=== PATIENT | female | born 1980 | race Hispanic/Latino ===

== ENCOUNTER 2022-01-06 17:23 | Inpatient (IN) | payer OTHER ==
[~2022-01-06] VITALS: Ht 157.5 cm; Wt 57.2 kg
[2022-01-06] MEDS ORDERED: LACTATED RINGERS 1000ML 1,000 ML IV ONE (18:00)
[2022-01-06] MEDS ORDERED: MORPHINE 4 MG SYG IVP ONE (18:00)
[2022-01-06] MEDS ORDERED: ONDANSETRON 4MG INJ IVP ONE (18:00)
[2022-01-06 19:10] LABS: BASOPHILS % (AUTO) 0.4 % (0.0-5.0); EOSINOPHILS % (AUTO) 1.1 % (0.0-8.0); HEMATOCRIT 38.1 % (36-48); LYMPHOCYTES % (AUTO) 12.4 % (21.0-51.0); MEAN CORPUSCULAR HEMOGLOBIN 29.7 pg (27.0-33.0); MEAN CORPUSCULAR HGB CONC 33.9 g/dL (32.0-36.0); MEAN CORPUSCULAR VOLUME 87.6 fL (79-99); MONOCYTES % (AUTO) 5.4 % (3.0-13.0); NEUTROPHILS % (AUTO) 80.4 % (40.0-77.0); PLATELET COUNT (AUTO) 209 K/uL (130-400); RED BLOOD CELL COUNT(AUTO) 4.35 MIL/uL (4.00-5.50); RED CELL DISTRIBUTION WIDTH 13.4 % (11.0-15.5); WHITE BLOOD COUNT (AUTO) 11.7 K/uL (4.8-10.8)
[2022-01-06 19:13] LABS: CREATININE 0.6 mg/dL (0.5-1.5); POTASSIUM 3.6 mmol/L (3.5-5.1)
[2022-01-06 19:23] LABS: ALBUMIN 3.4 g/dL (3.5-5.0); BILIRUBIN,TOTAL 0.3 mg/dL (0.2-1.0); TOTAL PROTEIN, SERUM 7.1 g/dL (6.0-8.3)
[2022-01-06] MEDS ORDERED: KETOROLAC 30MG VIAL (30MG/ML) IVP ONE (19:30)
[2022-01-06] MEDS ORDERED: IOHEXOL 350 MG/ML 100ML INFUS..BTL IV ONE (21:55)
[2022-01-06] MEDS ORDERED: DOXYCYCLINE HYCLATE 100 MG TABLET PO SCH (22:00)
[2022-01-06] MEDS ORDERED: CEFTRIAXONE 1G VIAL IVP ONE (22:00)
[2022-01-06] MEDS ORDERED: ACETAMINOPHEN 500 MG TABLET PO ONE (22:00)
[2022-01-06 22:01] LABS: APPEARANCE,URINE Clear (CLEAR); BILIRUBIN,URINE Negative (NEGATIVE); COLOR,URINE Yellow (YELLOW); GLUCOSE, URINE (UA) Negative (NEGATIVE); KETONES,URINE Negative (NEGATIVE); LEUKOCYTE ESTERASE ,URINE Large (NEGATIVE); NITRATE,URINE Negative (NEGATIVE); OCCULT BLOOD,URINE Small (NEGATIVE); PH,URINE 7.5 (5.0-8.0); PROTEIN,URINE Negative (NEGATIVE)
[2022-01-06 22:09] LABS: BACTERIA,URINE Few /HPF (None Seen); SQUAMOUS EPITHELIAL CELL,UR Few /HPF (0-2)
[2022-01-06] MEDS ORDERED: 0.9%NACL 1000ML 1,000 ML IV ONE ×2 (22:58→23:30)
[2022-01-06] MEDS ORDERED: LACTATED RINGERS 1000ML IV STA (23:04)
[2022-01-07] VITALS (7 sets, daily range): BP systolic 114–157; BP diastolic 75–95
[2022-01-07 00:17] LABS: PROTHROMBIN TIME 10.9 SEC (9.6-11.6)
[2022-01-07 00:18] LABS: PARTIAL THROMBOPLASTIN TIME 29.7 SEC (26.3-35.5)
[2022-01-07] MEDS: ONDANSETRON 4MG INJ IV PRN ×2 (00:55→17:15)
[2022-01-07] MEDS: MORPHINE 4 MG SYG IV PRN ×2 (01:05→06:13)
[2022-01-07] MEDS: LACTATED RINGERS 1000ML 1,000 ML IV SCH ×2 (01:10→08:47)
[2022-01-07 03:02] LABS: BASOPHILS % (AUTO) 0.2 % (0.0-5.0); EOSINOPHILS % (AUTO) 0.4 % (0.0-8.0); HEMATOCRIT 36.9 % (36-48); LYMPHOCYTES % (AUTO) 9.8 % (21.0-51.0); MEAN CORPUSCULAR HGB CONC 34.1 g/dL (32.0-36.0); MEAN CORPUSCULAR VOLUME 84.8 fL (79-99); MONOCYTES % (AUTO) 4.8 % (3.0-13.0); NEUTROPHILS % (AUTO) 84.6 % (40.0-77.0); PLATELET COUNT (AUTO) 197 K/uL (130-400); RED BLOOD CELL COUNT(AUTO) 4.35 MIL/uL (4.00-5.50); RED CELL DISTRIBUTION WIDTH 13.2 % (11.0-15.5); WHITE BLOOD COUNT (AUTO) 9.8 K/uL (4.8-10.8)
[2022-01-07 03:11] LABS: CREATININE 0.6 mg/dL (0.5-1.5); POTASSIUM 4.1 mmol/L (3.5-5.1)
[2022-01-07] MEDS ORDERED: ZOSYN 3.375GM +NS 50ML IV SCH (06:00)
[2022-01-07] MEDS: DOCUSATE SODIUM 100 MG CAP PO SCH ×2 (08:46→21:27)
[2022-01-07] MEDS: ACETAMINOPHEN 325 MG TAB PO PRN ×3 (08:46→23:54)
[2022-01-07] MEDS: KETOROLAC 15MG/ML VIAL (15MG/ML) IV PRN ×3 (08:47→23:57)
[2022-01-07] MEDS: DOXYCYCLINE HYCLATE 100 MG TABLET PO SCH ×2 (11:31→21:45)
[2022-01-07] MEDS ORDERED: ZOSYN 3.375GM+NS 50ML 50 ML ONE (11:37)
[2022-01-07] MEDS: ZOSYN 3.375GM +NS 50ML IV SCH ×2 (11:39→21:27)
[2022-01-07] MEDS: ACETAMINOPHEN WITH CODEINE 1 TAB TAB PO PRN (11:39)
[2022-01-08 03:12] VITALS: BP 103/67
[2022-01-08] MEDS: ACETAMINOPHEN WITH CODEINE 1 TAB TAB PO PRN ×2 (04:20→12:41)
[2022-01-08] MEDS: ZOSYN 3.375GM +NS 50ML IV SCH (04:20)
[2022-01-08] MEDS: ONDANSETRON 4MG INJ IV PRN ×2 (04:30→17:04)
[2022-01-08 05:08] LABS: BASOPHILS % (AUTO) 0.1 % (0.0-5.0); EOSINOPHILS % (AUTO) 0.1 % (0.0-8.0); HEMATOCRIT 43.2 % (36-48); LYMPHOCYTES % (AUTO) 11.7 % (21.0-51.0); MEAN CORPUSCULAR HEMOGLOBIN 29.6 pg (27.0-33.0); MEAN CORPUSCULAR HGB CONC 33.8 g/dL (32.0-36.0); MEAN CORPUSCULAR VOLUME 87.4 fL (79-99); MONOCYTES % (AUTO) 1.5 % (3.0-13.0); NEUTROPHILS % (AUTO) 86.2 % (40.0-77.0); PLATELET COUNT (AUTO) 196 K/uL (130-400); RED BLOOD CELL COUNT(AUTO) 4.94 MIL/uL (4.00-5.50); RED CELL DISTRIBUTION WIDTH 13.6 % (11.0-15.5); WHITE BLOOD COUNT (AUTO) 7.2 K/uL (4.8-10.8)
[2022-01-08 05:28] LABS: CREATININE 0.9 mg/dL (0.5-1.5); POTASSIUM 3.5 mmol/L (3.5-5.1)
[2022-01-08] MEDS: ACETAMINOPHEN 325 MG TAB PO PRN ×2 (06:42→19:50)
[2022-01-08] MEDS: DOCUSATE SODIUM 100 MG CAP PO SCH ×2 (08:01→19:50)
[2022-01-08] MEDS: DOXYCYCLINE HYCLATE 100 MG TABLET PO SCH ×2 (08:01→19:50)
[2022-01-08 08:26] VITALS: BP 119/71
[2022-01-08] MEDS ORDERED: LACTATED RINGERS 1000ML 1,000 ML IV ONE ×2 (08:30→20:30)
[2022-01-08] MEDS: MEROPENEM 1 GM VIAL IVP SCH ×2 (09:41→17:03)
[2022-01-08 12:36] VITALS: BP 124/82
[2022-01-08] MEDS ORDERED: LACTULOSE 20 GM/30 ML UDCUP PO PRN (14:00)
[2022-01-08 17:24] VITALS: BP 118/74
[2022-01-08 20:00] VITALS: BP 143/86
[2022-01-09] VITALS: BP 126/81
[2022-01-09] MEDS: MEROPENEM 1 GM VIAL IVP SCH ×3 (01:56→16:26)
[2022-01-09 04:00] VITALS: BP 129/82
[2022-01-09 05:12] LABS: BASOPHILS % (AUTO) 0.2 % (0.0-5.0); EOSINOPHILS % (AUTO) 0.2 % (0.0-8.0); HEMATOCRIT 35.6 % (36-48); LYMPHOCYTES % (AUTO) 11.5 % (21.0-51.0); MEAN CORPUSCULAR HEMOGLOBIN 28.2 pg (27.0-33.0); MEAN CORPUSCULAR HGB CONC 32.6 g/dL (32.0-36.0); MEAN CORPUSCULAR VOLUME 86.6 fL (79-99); MONOCYTES % (AUTO) 5.1 % (3.0-13.0); NEUTROPHILS % (AUTO) 82.6 % (40.0-77.0); PLATELET COUNT (AUTO) 150 K/uL (130-400); RED BLOOD CELL COUNT(AUTO) 4.11 MIL/uL (4.00-5.50); RED CELL DISTRIBUTION WIDTH 13.5 % (11.0-15.5); WHITE BLOOD COUNT (AUTO) 10.6 K/uL (4.8-10.8)
[2022-01-09 05:24] LABS: CREATININE 0.6 mg/dL (0.5-1.5)
[2022-01-09 05:25] LABS: POTASSIUM 2.9 mmol/L (3.5-5.1)
[2022-01-09] MEDS: KCL 20 MEQ ERTAB PO PRN (05:59)
[2022-01-09] MEDS ORDERED: POTASSIUM CHLORIDE 20MEQ/100ML 100 ML IV PRN ×2 (06:00→13:00)
[2022-01-09] MEDS ORDERED: POTASSIUM CHLORIDE 10% ELIXIR 20 MEQ/15 ML UDCUP PO PRN (06:00)
[2022-01-09] MEDS ORDERED: LIDOCAINE HCL-MPF 1% 2ML VIAL IV PRN ×2 (06:00→13:00)
[2022-01-09] MEDS ORDERED: DIATR MEGLU/DIATRIZOATE SODIUM 30 ML BOTTLE ONE (08:02)
[2022-01-09] MEDS: DOCUSATE SODIUM 100 MG CAP PO SCH ×2 (08:25→20:47)
[2022-01-09 09:00] VITALS: BP 118/79
[2022-01-09 10:45] LABS: MAGNESIUM 1.8 mg/dL (1.80-2.40)
[2022-01-09 10:53] LABS: CRP QUANTITATIVE 220.9 mg/L (0.00-9.0)
[2022-01-09] MEDS: DOXYCYCLINE HYCLATE 100 MG TABLET PO SCH (11:23)
[2022-01-09 11:55] VITALS: BP 127/93
[2022-01-09] MEDS ORDERED: HYDROMORPHONE 0.5 MG SYG (0.5MG/0.5ML) IVP PRN ×2 (12:30)
[2022-01-09] MEDS ORDERED: IOHEXOL-350 75 ML VIAL IV ONE (12:40)
[2022-01-09] MEDS: HYDROMORPHONE 1 MG INJ IVP PRN ×3 (12:59→22:43)
[2022-01-09] MEDS ORDERED: CALDOLOR 800MG+NS 250ML 250 ML IV PRN (13:30)
[2022-01-09] MEDS: POTASSIUM CHLORIDE 20MEQ/10ML 20 MEQ in DEXTROSE 5 %-0.45 % NACL 1,000 ML IV SCH ×2 (13:52→20:47)
[2022-01-09 16:25] VITALS: BP 125/81
[2022-01-09 20:00] VITALS: BP 144/93
[2022-01-09] MEDS: ONDANSETRON 4MG INJ IV PRN (22:43)
[2022-01-10] VITALS: BP 126/65
[2022-01-10] MEDS: MEROPENEM 1 GM VIAL IVP SCH ×3 (00:18→16:20)
[2022-01-10 04:00] VITALS: BP 135/79
[2022-01-10] MEDS: HYDROMORPHONE 1 MG INJ IVP PRN ×3 (04:22→23:07)
[2022-01-10] MEDS: POTASSIUM CHLORIDE 20MEQ/10ML 20 MEQ in DEXTROSE 5 %-0.45 % NACL 1,000 ML IV SCH (04:40)
[2022-01-10 05:19] LABS: BASOPHILS % (AUTO) 0.2 % (0.0-5.0); EOSINOPHILS % (AUTO) 0.2 % (0.0-8.0); HEMATOCRIT 34.6 % (36-48); LYMPHOCYTES % (AUTO) 9.5 % (21.0-51.0); MEAN CORPUSCULAR HEMOGLOBIN 29.1 pg (27.0-33.0); MEAN CORPUSCULAR HGB CONC 33.5 g/dL (32.0-36.0); MEAN CORPUSCULAR VOLUME 86.7 fL (79-99); MONOCYTES % (AUTO) 5.8 % (3.0-13.0); NEUTROPHILS % (AUTO) 83.8 % (40.0-77.0); PLATELET COUNT (AUTO) 177 K/uL (130-400); RED BLOOD CELL COUNT(AUTO) 3.99 MIL/uL (4.00-5.50); RED CELL DISTRIBUTION WIDTH 13.3 % (11.0-15.5); WHITE BLOOD COUNT (AUTO) 12.9 K/uL (4.8-10.8)
[2022-01-10 05:39] LABS: CREATININE 0.5 mg/dL (0.5-1.5); POTASSIUM 3.4 mmol/L (3.5-5.1)
[2022-01-10 05:55] LABS: CRP QUANTITATIVE 219.3 mg/L (0.00-9.0)
[2022-01-10 06:44] LABS: ERYTHROCYTE SEDIMENTATION RATE 65 MM/HR (0-20)
[2022-01-10 08:00] VITALS: BP 126/81
[2022-01-10] MEDS: DOCUSATE SODIUM 100 MG CAP PO SCH ×3 (08:21→20:19)
[2022-01-10 12:00] VITALS: BP 117/75
[2022-01-10 15:40] VITALS: BP 119/74
[2022-01-10 17:07] LABS: PROTHROMBIN TIME 10.9 SEC (9.6-11.6)
[2022-01-10 20:00] VITALS: BP 126/75
[2022-01-11] VITALS: BP 120/78
[2022-01-11] MEDS: MEROPENEM 1 GM VIAL IVP SCH ×3 (01:01→17:35)
[2022-01-11 04:00] VITALS: BP 125/73
[2022-01-11] MEDS: HYDROMORPHONE 1 MG INJ IVP PRN ×4 (04:28→22:30)
[2022-01-11] MEDS: KCL 20 MEQ ERTAB PO PRN (05:31)
[2022-01-11] MEDS: DOCUSATE SODIUM 100 MG CAP PO SCH ×2 (08:47→20:17)
[2022-01-11 10:03] VITALS: BP 118/78
[2022-01-11 16:00] VITALS: BP 137/95
[2022-01-11 19:42] LABS: MAGNESIUM 2.2 mg/dL (1.80-2.40); POTASSIUM 3.8 mmol/L (3.5-5.1)
[2022-01-11 20:10] VITALS: BP 131/78
[2022-01-12 00:04] VITALS: BP 121/79
[2022-01-12] MEDS: MEROPENEM 1 GM VIAL IVP SCH (01:01)
[2022-01-12] MEDS: HYDROMORPHONE 1 MG INJ IVP PRN ×3 (03:42→13:36)
[2022-01-12 04:04] LABS: HEMATOCRIT 31.5 % (36-48); MEAN CORPUSCULAR HEMOGLOBIN 29.2 pg (27.0-33.0); MEAN CORPUSCULAR HGB CONC 33.7 g/dL (32.0-36.0); MEAN CORPUSCULAR VOLUME 86.8 fL (79-99); RED BLOOD CELL COUNT(AUTO) 3.63 MIL/uL (4.00-5.50); RED CELL DISTRIBUTION WIDTH 13.3 % (11.0-15.5); WHITE BLOOD COUNT (AUTO) 10.5 K/uL (4.8-10.8)
[2022-01-12 04:35] LABS: CREATININE 0.4 mg/dL (0.5-1.5); MAGNESIUM 2.2 mg/dL (1.80-2.40); POTASSIUM 3.6 mmol/L (3.5-5.1)
[2022-01-12 05:01] VITALS: BP 138/85
[2022-01-12 07:00] VITALS: BP 117/63
[2022-01-12] MEDS: DOCUSATE SODIUM 100 MG CAP PO SCH (09:00)
[2022-01-12] MEDS ORDERED: INVANZ 1GM+NS 50ML IVPB 50 ML IV SCH (09:00)
[2022-01-12 11:00] VITALS: BP 108/65
[2022-01-12] MEDS ORDERED: KETO10 PO (12:53)
== END 2022-01-12 13:30 | disposition home or self-care (01) | DRG 872 ==
LOC: EDH 17:23 → EDHIP 23:04 → 3DH 23:42
PROVIDERS: ADMIT Internal Medicine; ATTEND Internal Medicine
DX: A41.51 Sepsis due to Escherichia coli [E. coli] (principal); N39.0 Urinary tract infection, site not specified; N94.89 Other specified conditions associated with female genital organs and menstrual cycle; N73.9 Female pelvic inflammatory disease, unspecified; E87.6 Hypokalemia; N83.202 Unspecified ovarian cyst, left side; Z98.891 History of uterine scar from previous surgery
CPT/HCPCS: 36415; 71045; 74177; 74178; 76856; 80048; 80053; 81001; 82550; 83605; 83735; 84132; 84145; 84702; 84703; 85025; 85027; 85610; 85651; 85730; 86140; 87040; 87077; 87088; 87186; 87486; 87797; 99291; C1894; G0378; J0696; J1170; J1335; J1885; J2185; J2270; J2405; J2543; J3480; J3490; J7030; J7042; J7120; Q9963; Q9967

== ENCOUNTER → 2022-01-15 | Outpatient (CLI) | payer OTHER ==
[~2022-01-15] MED LIST: KETO10 PO
[2022-01-15 09:38] LABS: BASOPHILS % (AUTO) 0.5 % (0.0-5.0); EOSINOPHILS % (AUTO) 4.1 % (0.0-8.0); HEMATOCRIT 35.3 % (36-48); LYMPHOCYTES % (AUTO) 19.7 % (21.0-51.0); MEAN CORPUSCULAR HEMOGLOBIN 28.5 pg (27.0-33.0); MEAN CORPUSCULAR HGB CONC 31.4 g/dL (32.0-36.0); MEAN CORPUSCULAR VOLUME 90.5 fL (79-99); MONOCYTES % (AUTO) 5.1 % (3.0-13.0); NEUTROPHILS % (AUTO) 68.5 % (40.0-77.0); PLATELET COUNT (AUTO) 386 K/uL (130-400); RED CELL DISTRIBUTION WIDTH 13.4 % (11.0-15.5); WHITE BLOOD COUNT (AUTO) 8.3 K/uL (4.8-10.8)
[2022-01-15 09:54] LABS: HEMOGLOBIN A1C 5.3 % (4.0-6.0)
[2022-01-15 10:08] LABS: ALBUMIN 2.8 g/dL (3.5-5.0); BILIRUBIN,TOTAL 0.2 mg/dL (0.2-1.0); CREATININE 0.6 mg/dL (0.5-1.5); POTASSIUM 4.9 mmol/L (3.5-5.1); THYROID STIMULATING HORMONE 0.72 uIU/mL (0.36-3.74); TOTAL PROTEIN, SERUM 7.5 g/dL (6.0-8.3)
== END ==
LOC: LAB 08:29
PROVIDERS: ATTEND Internal Medicine
DX: Z13.220 Encounter for screening for lipoid disorders (principal); Z13.29 Encounter for screening for other suspected endocrine disorder; Z13.1 Encounter for screening for diabetes mellitus; Z13.89 Encounter for screening for other disorder
CPT/HCPCS: 36415; 80053; 80061; 83036; 84443; 85025